=== PATIENT | male | born 1950 | race Caucasian/White ===

== ENCOUNTER 2017-04-02 11:19 | Emergency (ER) | payer OTHER ==
[~2017-04-02] VITALS: Ht 180.3 cm; Wt 92.1 kg
[~2017-04-02 11:19] MED LIST: ASPIRIN EC81 MG PO; ENALAPRIL MALEA20 MG PO; LANTUS100 UNIT/1 SUB-Q; METFORMIN HCL1000 MG PO; NOVOLOG100 UNIT/1 SUB-Q; PERCOCET 7.5-31 EACH PO; TRADJENTA5 MG PO; ZOFRAN ODT4 MG SL
[2017-04-02] MEDS ORDERED: METOPROLOL TART25 MG PO (11:49)
[2017-04-02] MEDS ORDERED: METHYLPREDNISOLO4 M1 PO (12:09)
[2017-04-02] MEDS ORDERED: BACLOFEN20 MG PO (12:09)
== END 2017-04-02 12:12 | disposition home or self-care (01) ==
LOC: ED 11:19
DX: M54.5 Low back pain (principal); E11.9 Type 2 diabetes mellitus without complications; Z87.442 Personal history of urinary calculi; Z87.891 Personal history of nicotine dependence; Z79.4 Long term (current) use of insulin; Z79.899 Other long term (current) drug therapy
CPT/HCPCS: 99283

== ENCOUNTER 2022-08-15 07:32 | Day surgery (SDC) | payer OTHER ==
[~2022-08-15] VITALS: Ht 180.3 cm; Wt 90.9 kg
[~2022-08-15 07:32] MED LIST changes: +ATORVASTATIN CA40 MG PO; +BACLOFEN20 MG PO; +CRANBERRY250 MG PO; +ENALAPRIL MALEA10 MG PO; +JARDIANCE25 MG PO; -LANTUS100 UNIT/1 SUB-Q; +LANTUS100 UNITS/ ID; +METHYLPREDNISOLO4 M1 PO; +METOPROLOL TART25 MG PO; +NAPROXEN375 MG PO; +NITROGLYCERIN0.4 MG SL; +SAW PALMETTO500 MG PO
[2022-08-15] MEDS ORDERED: METOPROLOL SUCC25 MG PO (08:24)
--- NOTE | 2022-08-15 12:19 | NUR ---
08/15/22 1219 Hanny Burns 1132 PT ARRIVED IN PACU AWAKE WITH NO C/O'S MOVING BILAT LEGS. 1145 VISITING WITH STAFF. NO C/O'S. 1155 STOOD AT SIDE OF BED WITH 2 PERSON ASSIST. UNABLE TO MOVE LEGS. BACK IN BED. 1200 TO DS TILL READY FOR DC. REPORT GIVEN TO RN.
--- NOTE | 2022-08-15 14:42 | NUR ---
1200: PATIENT BACK IN DAY SURGERY ROOM FROM PACU. DENIES PAIN. LUNCH ORDERED. IV SALINE LOCKED. FAMILY AT BEDSIDE. PATIENT EDUCATED NOT TO GET OOB BY HIMSELF DUE TO SADDLE BLOCK AFFECTING LEGS. CALL LIGHT WITHIN REACH. 1310: OTHER RN WALKING BY ROOM NOTICED PATIENT WALKING AROUND ROOM INDEPENDENTLY. PATIENT GOT OOB WITHOUT CALLING FOR ASSISTANCE. PATIENT REQUESTS TO GO HOME. ASSISTING PATIENT TO GET DRESSED. 1335: VS CHECKED. DISCHARGE INSTRUCTIONS GIVEN TO PATIENT AND . IV DC'D WNL. TIP INTACT. DRESSING APPLIED. PATIENT DISCHARGED TO HOME WITH VIA WHEELCHAIR.
--- NOTE | 2022-08-15 15:34 | OR ---
[facility] [address], [place] [address] Signed DATE OF OPERATION: 08/15/2022 SURGEON: Steven Johnson MD PREOPERATIVE DIAGNOSIS: External hemorrhoid x1 at 1 o'clock position. POSTOPERATIVE DIAGNOSIS: External hemorrhoid x1 at 9 o'clock position. PROCEDURE: External hemorrhoidectomy x1. ESTIMATED BLOOD LOSS: None. INDICATIONS: Miracle is a 72-year-old diabetic gentleman, who actually came back in 2018 at the age of 67 for his initial colonoscopy. He had guaiac positive stool at that time. He had minimal to moderate internal and external hemorrhoids. He had a 5 mm tubular adenomatous polyp removed. We had asked him to come back in 5 years for repeat colonoscopy. In the meantime, he has had an external hemorrhoid that we thought was at the 1 o'clock position that was giving him quite a bit of trouble. However, on exam today it was actually at the 9 o'clock position. He said sometimes it bleeds but often it is painful. His happened to go through colon cancer surgery and also had hemorrhoid surgery. She has done very well. She is now very knowledgeable. She had encouraged him to deal with that troublesome external hemorrhoid. He had been to the primary care provider. He was then asked to see me as a local general surgeon. I met with Miracle and his in the office. I gave them our brochure on hemorrhoid and hemorrhoid surgeries. They understand external hemorrhoids have to be excised. We cannot band external hemorrhoids. This is done in the operating room. They understand this is a very painful surgery, but by the end of couple of weeks it is much better and by the end of two months they are well on the way. This is a day surgery and he will be going home afterwards. They know there is risk including, but not limited to bleeding, infection, scarring, change in contour of the skin as well as recurrent hemorrhoids. He had expressed understanding and wished to proceed. PROCEDURE NOTE: Miracle underwent a saddle block by our nurse stagecraft professor. After this, he was taken to the operating room and placed in the prone gerry-knife position with appropriate padding and Electronically Signed By: STEVEN JOHNSON MD 08/15/22 1534 PATIENT NAME: MIRACLE HERNANDEZ OPERATIVE REPORT DATE OF : 46 REPORT #: [id number] PHYSICIAN: STEVEN JOHNSON MD PCP: KIM REARDON MD REPORT IS CONFIDENTIAL AND NOT TO BE RELEASED WITHOUT AUTHORIZATION [facility] [address], [place] [address] Signed monitoring. He had been given his heparin after the saddle block was completed. He was given IV antibiotics. SCDs were utilized. He was then prepped and draped in the usual sterile fashion. On examination, he actually has a dominant external hemorrhoid at the 9 o'clock position. Nothing much today in the way of any external hemorrhoids elsewhere or internal hemorrhoids. The dentate line is intact and the mucosa was quite healthy above the dentate line. We did not palpate any masses. We went ahead and placed a stitch just above the external hemorrhoid and the mucosa. The external hemorrhoid was carefully excised with the help of the cautery with direct visualization of the sphincters at all times. We went ahead and just did a [id number] stitch at the apex with our 2-0 chromic suture. Otherwise, the rest of that hemorrhoidectomy site was left open. Local anesthetic was injected in and underneath the hemorrhoid site. After this, dry gauze and an ABD was applied along with his mesh underwear. Miracle was then rotated into the supine position on his hospital bed and taken into the recovery room in stable condition. Steven Johnson MD ALB/MODL /[id number] cc: MD Steven Majano MD Copies: KIM REARDON MD, ANDREW L MD ~ Electronically Signed By: STEVEN JOHNSON MD 08/15/22 1534 PATIENT NAME: MIRACLE HERNANDEZ OPERATIVE REPORT DATE OF : 46 REPORT #: [id number] PHYSICIAN: STEVEN JOHNSON MD PCP: KIM REARDON MD REPORT IS CONFIDENTIAL AND NOT TO BE RELEASED WITHOUT AUTHORIZATION
--- NOTE | 2022-08-16 13:37 | PATH ---
[facility] [address], [place] [address] Signed SPECIMEN(S): A LEFT EXTERNAL HEMORRHOID SPECIMEN SOURCE: A. LEFT EXTERNAL HEMORRHOID CLINICAL HISTORY: Hemorrhoids, external/internal. FINAL PATHOLOGIC DIAGNOSIS: Left external hemorrhoid: - Benign perianal tissue with hemorrhoids. AMB:emh:C2NR MICROSCOPIC EXAMINATION: Histologic sections of all submitted blocks are examined by light microscopy. These findings, together with the gross examination, support the pathologic diagnosis. GROSS DESCRIPTION: The specimen, labeled and designated "[place], left external hemorrhoid," is received in formalin and consists of one irregular shaped piece of skin and mucosal tissue that measures 2.5 x 2.0 x 0.8 cm. Sectioning through the specimen reveals congested submucosal and subcutaneous tissue. Hull Sorter sections are submitted in (A1). JS (under the direct supervision of a pathologist) The Gross Description was prepared using a voice recognition system. The report was reviewed for accuracy; however, sound-alike word errors, addition and/or deletions may occur. If there is any question about this report, please contact Client Services. PERFORMING LABORATORY: The technical component was performed by [facility], [address] [place] [id number] (CLIA# [id number]). Professional interpretation was performed by [facility], [facility], [address] [place] [id number] (CLIA#: [id number]). Diagnostician: Guera Dc MD Pathologist Electronically Signed 08/16/2022 PATIENT NAME: MIRACLE HERNANDEZ PATHOLOGY DATE OF : 46 REPORT #: [id number] PHYSICIAN: [facility] PCP: KIM REARDON MD REPORT IS CONFIDENTIAL AND NOT TO BE RELEASED WITHOUT AUTHORIZATION [address] [address] Signed Copies: ~ PATIENT NAME: MIRACLE HERNANDEZ PATHOLOGY DATE OF : 46 REPORT #: [id number] PHYSICIAN: [facility] PCP: KIM REARDON MD REPORT IS CONFIDENTIAL AND NOT TO BE RELEASED WITHOUT AUTHORIZATION
== END 2022-08-15 13:35 | disposition home or self-care (01) ==
LOC: DS 07:32
PROVIDERS: ATTEND Colon & Rectal Surgery
PROC: 06BY0ZC Excision of Hemorrhoidal Plexus, Open Approach (ICD-10-PCS; principal; 2022-08-15 10:05)
DX: K64.4 Residual hemorrhoidal skin tags (principal); I25.10 Atherosclerotic heart disease of native coronary artery without angina pectoris; I10 Essential (primary) hypertension; E11.9 Type 2 diabetes mellitus without complications; I48.0 Paroxysmal atrial fibrillation; R01.1 Cardiac murmur, unspecified; Z86.010 Personal history of colon polyps
CPT/HCPCS: 93005; 93010; J0690; J1644; J2001; J2704; J7121